=== PATIENT | female | born 1975 | race Caucasian/White ===

== ENCOUNTER 2017-05-16 11:59 | Observation (INO) ==
--- NOTE | 2017-05-16 12:21 | Emergency Department Note ---
Disposition Clinical Impression: Poison richard dermatitis Cellulitis Qualifiers: Site of cellulitis: unspecified site Qualified Code(s): L03.90 - Cellulitis, unspecified Disposition: Admitted As Inpatient Condition: Good Time of Disposition: 13:00 General Adult HPI - General Chief complaint: ED Allergic Reaction Stated complaint: worsening cellulitis Time Seen by Provider: 05/16/17 12:11 Source: patient Mode of arrival: ambulatory Limitations: no limitations Nursing Notes Reviewed: Yes Vital Signs Reviewed: Yes - History of Present Illness HPI Narrative: Patient is a 41-year-old female with past medical history of hypertension. She presents today due to concern for worsening cellulitis. She states that 2 weeks ago, she developed poison richard. She was seen by urgent care and was prescribed prednisone Dosepak for 6 days. She finished this course and had worsening spread of rash and itching. She followed up and can and was given a steroid injection in the buttocks. She said that this did not help either. She then started developing redness around the poison richard lesions. She followed up with urgent care on Wednesday and was then started on Bactrim for cellulitis She said that she has been taking this since Wednesday, has not missed any doses. She is still having worsening of redness and is started to develop induration in these areas. Denies any nausea, vomiting, fevers, diarrhea, abdominal pain. Pain Scale: 10 - Related Data Home Medications Medication Instructions Recorded Confirmed Lorazepam 04/06/16 Sertraline 04/06/16 04/06/16 Previous Rx's Medication Instructions Recorded Acetaminophen w/Cod 300-30 mg 1 each PO Q4-6H PRN #10 tablet 04/06/16 [Tylenol w/Codeine #3] Amoxicillin 875 mg PO BID #20 tablet 06/18/16 GuaiFENesin ER [Mucinex] 1,200 mg PO BID #20 tbbp.12hr 06/18/16 Loratadine [Claritin] 10 mg PO DAILY #30 tablet 06/18/16 methylPREDNISolone [Medrol] 4 mg PO TAPER #21 tablet 05/04/17 Allergies Allergy/AdvReac Type Severity Reaction Status Date / Time naproxen Allergy Intermediate Hives Verified 05/16/17 12:06 morphine Allergy Rash Verified 05/16/17 12:06 All systems ED: reviewed and negative except as stated. Constitutional: Denies: fever Cardiovascular: Denies: chest pain, palpitations Respiratory: Denies: cough, dyspnea Gastrointestinal: Denies: abdominal pain, nausea, vomiting, diarrhea, constipation Integumentary: Reports: rash, pruritus Past Medical History - Past Medical History Attestation: Yes The following information was validated with the patient. Source: patient Medical history: Reports: hypertension Psychiatric history: Reports: no psych history - Social History Smoking Status: Never smoker Smokeless Tobacco Status: No Alcohol use: Reports: occasionally Drug use: Reports: none Physical Exam - General Limitations: no limitations General appearance: alert, in no apparent distress - Head Head exam: atraumatic, normocephalic, normal inspection - Eye Eye exam: Present: normal appearance, PERRL, EOMI - ENT ENT exam: normal exam, normal oropharynx, mucous membranes moist - Neck Neck exam: Present: normal inspection, full ROM, trachea midline - Chest Chest inspection: Present: normal inspection, symmetric chest wall rise - Respiratory Respiratory exam: Present: normal lung sounds bilaterally - Cardiovascular Cardiovascular exam: Present: regular rate, normal rhythm, normal heart sounds - Abdominal Exam Abdominal exam: Present: soft, Non-Tender. Absent: tenderness, distention, guarding, rebound, rigidity - Extremities Exam Extremities exam: Present: full ROM. Absent: tenderness, pedal edema - Neurological Exam Neurological exam: Present: alert, oriented X3 - Psychiatric Psychiatric exam: Present: normal affect, normal mood - Skin Skin exam: Present: warm, dry, intact, rash (Poison richard rash of right arm, left arm with associated blister, abdomen, left buttocks. All of these areas have associated surrounding erythema and induration. No fluctuance appreciated on exam. Cobblestoning seen on bedside ultrasound with no abscesses seen.) Course Course Narrative: Blood pressure falsely elevated. Patient did not want blood pressure taken on either arm due to poison richard rash. Her blood pressures taken on ankle cuff, therefore inaccurate. The rest of the vitals within normal limits. Physical exam shows: Poison richard rash of right arm, left arm with associated blister, abdomen, left buttocks. All of these areas have associated surrounding erythema and induration. No fluctuance appreciated on exam. Cobblestoning seen on bedside ultrasound with no abscesses seen. Patient has failed outpatient abx treatment. Patient will be admitted for IV antibiotics for further care. Will draw CBC, BMP and start rocephin. Vital Signs Temperature 98.2 F 05/16/17 12:06 Pulse Rate 107 05/16/17 12:06 Respiratory Rate 20 05/16/17 12:06 Blood Pressure 184/125 05/16/17 12:06 O2 Sat by Pulse Oximetry 95 05/16/17 12:06 Temperature 98.2 F 05/16/17 12:06 Pulse Rate 107 05/16/17 12:06 Respiratory Rate 20 05/16/17 12:06 Blood Pressure 184/125 05/16/17 12:06 O2 Sat by Pulse Oximetry 95 05/16/17 12:06 Oxygen Delivery Oxygen Delivery Room Air Medical Decision Making - MDM Narrative Medical decision making narrative: Blood pressure falsely elevated. Patient did not want blood pressure taken on either arm due to poison richard rash. Her blood pressures taken on ankle cuff, therefore inaccurate. The rest of the vitals within normal limits. Physical exam shows: Poison richard rash of right arm, left arm with associated blister, abdomen, left buttocks. All of these areas have associated surrounding erythema and induration. No fluctuance appreciated on exam. Cobblestoning seen on bedside ultrasound with no abscesses seen. Patient has failed outpatient abx treatment. Patient will be admitted for IV antibiotics for further care. Will draw CBC, BMP and start rocephin. - Medical Records Medical records reviewed: Yes I reviewed the patient's medical records. S.B.AJacob. - Bonny.Evangelina.A.Leo Situation: Demographics, MOA Background: Presenting Complaint, Relevant PMH, Meds, & Allergies Assessment: Vital Signs, Course and respsone to treatment, Exam Concerns, Patient/Family Expectation, Pertinant Lab Results Recommendation: Barrier(s) to disposition, Recommendation based on pending studies, treatments, or consults S.B.A.RAusten Report Given to: Dr. Nola Gutierrez Repor Time: 13:00
--- NOTE | 2017-05-16 12:30 | Emergency Department Note ---
START Narrative - START START: I examined this patient and my medical decision-making was reviewed with the emergency medicine resident. I agree with the documented findings, disposition and treatment plan as described except to the extent set forth below. Patient seen with emergency medicine resident Dr. Emile Worthy, Please see a copy of his note for details of the H&P, ED evaluation, management and disposition. I have independently evaluated the patient and confirmed appropriate portions of the history and physical exam. Briefly: A 41-year-old female previously treated for poison richard exposure rechecked in urgent care and a ER developing cellulitis placed on Bactrim starting Wednesday but despite multiple doses of steroids and starting Bactrim induration erythema pain and discomfort and skin getting worse with blister on the lateral left upper extremity. No mucocutaneous oral pharyngeal lesions or involvement. No crusting of the lips or conjunctival injection. Patient is afebrile with stable vital signs. Patient we will get screening labs IV IV antibiotics and be admitted for cellulitis for failed outpatient treatment. Disposition pending
[2017-05-16] MEDS ORDERED: 0.9 % Sodium Chloride 1,000 ML IVC ONE (13:00)
--- NOTE | 2017-05-16 13:44 | Internal Med History&Physical ---
Date of Encounter: 05/16/17 Time of Encounter: 13:40 Assessment and Plan (1) Essential hypertension Current visit: Yes Status: Acute Resumed home dose of HCTZ. (2) DVT prophylaxis Current visit: Yes Status: Acute Encourage early ambulation. She does not require pharmacological prophylaxis per risk assessment score. (3) Cellulitis Current visit: Yes Status: Acute Patient has prominent edema, redness, warmth and induration of the left buttock area which could suggest superinfection and cellulitis. We will treat her with IV ceftriaxone. We will obtain CBC to evaluate WBC, we will obtain blood cultures. If WBC count is normal and blood cultures are sterile and patient remains afebrile I suggest quick de-escalation of antibiotics. Qualifiers: Site of cellulitis: buttock Qualified Code(s): L03.317 - Cellulitis of buttock (4) Poison richard dermatitis Current visit: Yes Status: Acute She received a dose of Medrol pack which is sometimes inadequate for severe poison richard dermatitis and can result in severe rebound symptoms. Per [employer]: "extensive clinical experience suggests that rebound dermatitis occurs commonly if too short a course is used (such as the six-day course in a Medrol dose pack)" We will start prednisone 60 mg daily for severe poison richard dermatitis. Acetaminophen for pain. She is allergic to morphine, oxycodone and naproxen. (5) Depression Current visit: Yes Status: Acute Continue Zoloft Qualifiers: Depression Type: major depressive disorder Major depression recurrence: recurrent Active/Remission status: in full remission Qualified Code(s): F33.42 - Major depressive disorder, recurrent, in full remission Internal Medicine - H&P: HPI Chief complaint: Skin rash Admitted From: Emergency Dept Plans for Post Hospital Care: Home History of present illness: Ms. Murray is a 41 year old female with past medical history significant for essential hypertension who presented to the hospital for evaluation of skin rash. 2 weeks ago she contacted poison richard through her who picked weeds outside. Her had poison richard on his arms and hands and she ended up having extensive rash of poison richard on both arms and abdomen and buttocks. She completed 6 days of Medrol pack prescribed by her PCP but did not see any significant improvement. Then she had a shot of Decadron and was started on Bactrim. Her symptoms got worse and she decided to come to the hospital. She reports burning and sharp pain in the affected skin areas especially on the left and right arm and left buttock. Worse with pressure and rubbing. She reports associated subjective fevers and chills but no measurable fever. In the emergency department she was treated with ceftriaxone and referred for admission. A 10 point review of systems was negative except as above Family history was reviewed and found to be noncontributory to this case. Patient's father suffered with colon cancer in his 40s. Social history: Denies tobacco alcohol and drug use. Lives at home with her and child. She works a desk job. Past Med Surg Social Fam HX - Past Medical History Medical history: hypertension Psychiatric history: no psych history - Social History Smoking Status: Never smoker Smokeless Tobacco Status: No Alcohol use: occasionally Drug use: none Internal Medicine - H&P: Meds Acetaminophen w/Cod 300-30 mg [Tylenol w/Codeine #3] 1 each PO Q4-6H PRN #10 tablet 04/06/16 [Rx] Lorazepam 04/06/16 [History] Sertraline 04/06/16 [History] Amoxicillin 875 mg PO BID #20 tablet 06/18/16 [Rx] GuaiFENesin ER [Mucinex] 1,200 mg PO BID #20 tbbp.12hr 06/18/16 [Rx] Loratadine [Claritin] 10 mg PO DAILY #30 tablet 06/18/16 [Rx] methylPREDNISolone [Medrol] 4 mg PO TAPER #21 tablet 05/04/17 [Rx] 3 Allergy/AdvReac Type Severity Reaction Status Date / Time naproxen Allergy Intermediate Hives Verified 05/16/17 12:06 morphine Allergy Rash Verified 05/16/17 12:06 All Systems PM: A 10-system review of systems was performed and is negative for pertinent findings except as documented above in the HPI. - Constitutional Vitals: Temp Pulse Resp BP Pulse Ox 98.2 F 107 20 184/125 95 05/16/17 12:06 05/16/17 12:06 05/16/17 12:06 05/16/17 12:06 05/16/17 12:06 General appearance: Present: A&O X 3, no acute distress - Eye Eye exam: Present: PERRL, conjuntiva pink, sclera anicteric Pupils: Present: PERRL - Respiratory Respiratory exam: Present: CTAB. Absent: accessory muscle use, rales, rhonchi, wheezes - Cardiovascular Cardiovascular exam: Present: RRR, +S1, +S2. Absent: diastolic murmur, gallop, rubs, systolic murmur - GI/Abdominal GI/Abdominal exam: Present: normal bowel sounds, soft, no peritoneal signs. Absent: distended, tenderness - Extremities Exam Extremities exam: Present: warm, radial pulses palpable and symmetrical. Absent : calf tenderness, cyanotic, pedal edema - Neurological Exam Neurological exam: Present: CN II-XII intact, oriented X3, no focal deficits. Absent: pronater drift, facial droop, speech deficit - Skin Skin exam: Present: dry, erythema Additional comments: Left posterior arm erythema and duration and several fluid-filled vesicles noted , largest is 1.5 cm in diameter. No open wounds. Right arm and antecubital fosa indurated and raised erythematosus rash with no open wounds. Left buttock area fringe ration redness and warmth but no open wounds. Mild rash on the abdomen and under the right breast going into the groin but not appearing to involve the genital area.
[2017-05-16 13:50] LABS: Basophils # 0.1 K/mcL (0.0-0.2); Basophils % 0.4 %; Eosinophils # 0.6 K/mcL (0.0-0.6); Eosinophils % 5.5 %; Hematocrit 45.2 % (35.3-44.9); Hemoglobin 14.9 g/dL (11.5-15.4); Immature Granulocytes % 0.3 % (0-4); Lymphocytes # 2.2 K/mcL (0.6-4.6); Lymphocytes % 19.9 %; Mean Corpuscular Hemoglobin 30.2 pg (28.0-33.3); Mean Corpuscular Volume 91.7 fL (83.0-100.0); Mean Platelet Volume 9.9 fL (9.4-12.4); Monocytes # 0.8 K/mcL (0.0-1.3); Monocytes % 7.3 %; Neutrophils # 7.5 K/mcL (1.6-8.9); Platelet Count 216 K/mcL (140-400); Red Blood Count 4.93 M/mcL (3.82-4.97); Red Cell Distribution Width 13.8 % (11.5-14.5); Segmented Neutrophils % 66.6 %
[2017-05-16] MEDS ORDERED: predniSONE 20 MG TABLET PO SCH (14:00)
[2017-05-16] MEDS ORDERED: Naloxone 0.4 MG/ML INJ IVP PRN (14:00)
[2017-05-16 14:01] LABS: Calcium 9.1 mg/dL (8.6-10.8); Potassium 3.7 mEq/L (3.5-4.5)
[2017-05-16] MEDS ORDERED: methylPREDNISolone 125 MG/2 ML VIAL IVP ONE (14:10)
[2017-05-16] MEDS: Acetaminophen 325 MG TABLET PO PRN (15:51)
[2017-05-16 21:02] LABS: Bilirubin,Urine Negative (Negative); Blood,Urine Negative (Negative); Clarity,Urine Clear (Clear); Color,Urine Yellow (Yellow); Glucose,Urine (UA) Normal (Normal); Ketones,Urine Negative (Negative); Leukocyte Esterase,Urine Negative (Negative); Nitrite,Urine Negative (Negative); Protein,Urine Negative (Neg-Trace); Specific Gravity,Urine 1.021 (1.010-1.025); Urobilinogen,Urine Normal (Normal)
[2017-05-16] MEDS: traMADol 50 MG TABLET PO PRN (21:22)
[2017-05-17] MEDS: traMADol 50 MG TABLET PO PRN ×3 (04:38→17:27)
[2017-05-17 04:51] LABS: Basophils % 0.2 %; Eosinophils % 0.1 %; Hematocrit 43.9 % (35.3-44.9); Hemoglobin 14.9 g/dL (11.5-15.4); Immature Granulocytes % 0.5 % (0-4); Lymphocytes % 6.1 %; Mean Corpuscular HGB Conc 33.9 g/dL (31.6-35.5); Mean Corpuscular Hemoglobin 31.2 pg (28.0-33.3); Mean Corpuscular Volume 91.8 fL (83.0-100.0); Mean Platelet Volume 10.2 fL (9.4-12.4); Monocytes # 0.2 K/mcL (0.0-1.3); Monocytes % 0.9 %; Neutrophils # 15.2 K/mcL (1.6-8.9); Platelet Count 209 K/mcL (140-400); Red Blood Count 4.78 M/mcL (3.82-4.97); Red Cell Distribution Width 13.6 % (11.5-14.5); Segmented Neutrophils % 92.2 %
[2017-05-17 05:08] LABS: BUN/Creatinine Ratio 18 (6-26); Blood Urea Nitrogen 17 mg/dL (7-20); Calcium 9.5 mg/dL (8.6-10.8); Carbon Dioxide 19 mEq/L (19-29); Chloride 106 mEq/L (98-109); Glucose 152 mg/dL (70-99); Osmolality,Calculated 281 (280-300); Potassium 4.3 mEq/L (3.5-4.5); Sodium 133 mEq/L (136-145); eGFR For African Americans > 60 (> 60); eGFR For Non-African Americans > 60 (> 60)
[2017-05-17] MEDS: predniSONE 20 MG TABLET PO SCH (09:13)
[2017-05-17] MEDS: Acetaminophen 325 MG TABLET PO PRN ×2 (09:13→22:30)
--- NOTE | 2017-05-17 18:24 | Internal Med Progress Note ---
Date of Encounter: 05/17/17 Time of Encounter: 11:00 - Assessment and plan (1) Cellulitis Current Visit: Yes Status: Acute Assessment and plan: -Erythematous area of left upper extremity has extended beyond marked borders. -Will discontinue ceftriaxone and start patient on IV vancomycin with pharmacy to dose Qualifiers: Site of cellulitis: extremity Site of cellulitis of extremity: upper extremity Laterality: left Qualified Code(s): L03.114 - Cellulitis of left upper limb (2) Poison richard dermatitis Current Visit: Yes Status: Acute Assessment and plan: -Management of cellulitis as above. -In addition will continue prednisone. (3) Essential hypertension Current Visit: Yes Status: Acute Assessment and plan: -Blood pressure controlled; continue home medications. (4) Depression Current Visit: Yes Status: Acute Assessment and plan: -Continue home medication. Qualifiers: Depression Type: major depressive disorder Major depression recurrence: recurrent Active/Remission status: in full remission Qualified Code(s): F33.42 - Major depressive disorder, recurrent, in full remission - Subjective Interval history: Patient reports of worsening erythematous area on left upper extremity with discomfort. - Constitutional Vitals: Temp Pulse Resp BP Pulse Ox 98.8 F 72 15 118/78 96 05/17/17 14:49 05/17/17 14:49 05/17/17 14:49 05/17/17 14:49 05/17/17 14:49 General appearance: Present: A&O X 3, no acute distress - Respiratory Respiratory exam: Present: CTAB. Absent: accessory muscle use, rales, rhonchi, wheezes - Skin Skin exam: Present: erythema (Left upper extremity: Erythematous region has extended outside of previously marked borders; abdomen: Erythematous patch; left gluteal region: Erythematous patch) Internal Medicine: Result - Labs CBC & Chem 7: 05/17/17 04:07 05/17/17 04:07 Labs: Short CBC 05/17/17 Range/Units 04:07 WBC 16.4 H (4.3-11.1) K/mcL Hgb 14.9 (11.5-15.4) g/dL Hct 43.9 (35.3-44.9) % Plt Count 209 (140-400) K/mcL Neutrophils # 15.2 H (1.6-8.9) K/mcL BMP 05/17/17 04:07 Sodium 133 L Potassium 4.3 Chloride 106 Carbon Dioxide 19 BUN 17 Creatinine 0.92 Glucose 152 H Calcium 9.5 Urine 05/16/17 Range/Units 20:45 Urine Color Yellow (Yellow) Urine Clarity Clear (Clear) Urine pH 7.0 (5.0-8.0) pH Units Ur Specific [place] 1.021 (1.010-1.025) Urine Protein Negative (Neg-Trace) mg/dL Urine Glucose (UA) Normal (Normal) mg/dL Consult Discharge Plan - Plan Referrals: Gigi Renteria Jr, [employer] MECH[employer]IC [Primary Care Provider] -
[2017-05-17] MEDS ORDERED: Vancomycin 1,250 MG in D5% in Water 250 ML IVPB ONE (19:00)
[2017-05-18] MEDS ORDERED: Vancomycin 1,000 MG in D5% in Water 250 ML IVPB SCH (08:00)
[2017-05-18] MEDS: traMADol 50 MG TABLET PO PRN (08:11)
[2017-05-18] MEDS: predniSONE 20 MG TABLET PO SCH (08:13)
[2017-05-18 10:23] LABS: Basophils # 0.1 K/mcL (0.0-0.2); Basophils % 0.3 %; Eosinophils # 0.1 K/mcL (0.0-0.6); Eosinophils % 0.4 %; Hematocrit 41.7 % (35.3-44.9); Hemoglobin 13.7 g/dL (11.5-15.4); Immature Granulocytes % 0.6 % (0-4); Lymphocytes # 2.3 K/mcL (0.6-4.6); Lymphocytes % 10.9 %; Mean Corpuscular HGB Conc 32.9 g/dL (31.6-35.5); Mean Corpuscular Hemoglobin 30.5 pg (28.0-33.3); Mean Corpuscular Volume 92.9 fL (83.0-100.0); Mean Platelet Volume 9.8 fL (9.4-12.4); Monocytes # 0.8 K/mcL (0.0-1.3); Monocytes % 3.9 %; Neutrophils # 17.5 K/mcL (1.6-8.9); Platelet Count 195 K/mcL (140-400); Red Blood Count 4.49 M/mcL (3.82-4.97); Red Cell Distribution Width 14.2 % (11.5-14.5); Segmented Neutrophils % 83.9 %
[2017-05-18 10:34] LABS: BUN/Creatinine Ratio 24 (6-26); Blood Urea Nitrogen 19 mg/dL (7-20); Calcium 9.1 mg/dL (8.6-10.8); Carbon Dioxide 22 mEq/L (19-29); Chloride 107 mEq/L (98-109); Glucose 114 mg/dL (70-99); Osmolality,Calculated 289 (280-300); Potassium 3.8 mEq/L (3.5-4.5); Sodium 138 mEq/L (136-145); eGFR For African Americans > 60 (> 60); eGFR For Non-African Americans > 60 (> 60)
[2017-05-18 10:40] VITALS: BP 142/90
--- NOTE | 2017-05-18 11:04 | Discharge Summary ---
<Genny Luke - Last Filed: 05/18/17 11:34> Date of Encounter: 05/18/17 Time of Encounter: 10:50 - Discharge Diagnosis (1) Cellulitis Priority: Primary Status: Acute Comments: Patients rash improved a little within the border. She was started on augmentin and predinsone Qualifiers: Site of cellulitis: extremity Site of cellulitis of extremity: upper extremity Laterality: left Qualified Code(s): L03.114 - Cellulitis of left upper limb (2) Poison richard dermatitis Priority: Secondary Status: Acute Comments: Patient has had poison richard before. please see above (3) Essential hypertension Priority: Secondary Status: Acute Comments: blood pressure was controlled continued patient medication (4) Depression Priority: Secondary Status: Acute Comments: continue patient home medications Qualifiers: Depression Type: major depressive disorder Major depression recurrence: recurrent Active/Remission status: in full remission Qualified Code(s): F33.42 - Major depressive disorder, recurrent, in full remission - Discharge Medications Prescriptions: Amoxicillin/Clavulanate [Augmentin] 875 mg PO BIDWM 11 Days #22 tablet predniSONE [PredniSONE] See Taper PO TAPER 3 Days #7 tablet Home Medications: Sertraline [Zoloft] 25 mg PO DAILY 04/06/16 [History] hydroCHLOROthiazide [Hydrochlorothiazide] 12.5 mg PO DAILY 05/16/17 [History] Amoxicillin/Clavulanate [Augmentin] 875 mg PO BIDWM 11 Days #22 tablet 05/18/17 [Rx] predniSONE [PredniSONE] See Taper PO TAPER 3 Days #7 tablet 05/18/17 [Rx] Allergies/Adverse Reactions: 3 Allergy/AdvReac Type Severity Reaction Status Date / Time naproxen Allergy Intermediate Hives Verified 05/16/17 12:06 morphine Allergy Rash Verified 05/16/17 12:06 Date of admission: 05/16/17 13:27 Primary care physician: Gigi Renteria Jr, CNP Discharging clinician: Jarad Corona - Patient Status Disposition: Home, Self-Care Condition: Good Functional capacity at discharge: independent ambulation Overall status at discharge: patient is progressing back to baseline - Discharge Instructions Follow Up With: Gigi Renteria Jr, CNP [Primary Care Provider] - 05/24/17 10:30 am Forms: Inpatient Work/School Release - Diet and Activity Activity: resume usual activities as tolerated Diet: advance to your usual diet Hospital course: Ms. Murray is a 41 year old female with past medical history significant for essential hypertension who presented to the hospital for evaluation of skin rash. 2 weeks ago she contacted poison richard through her who picked weeds outside. Her had poison richard on his arms and hands and she ended up having extensive rash of poison richard on both arms and abdomen and buttocks. She completed 6 days of Medrol pack prescribed by her PCP but did not see any significant improvement. Then she had a shot of Decadron and was started on Bactrim. Her symptoms got worse and she decided to come to the hospital. She reports burning and sharp pain in the affected skin areas especially on the left and right arm and left buttock. Worse with pressure and rubbing. She reports associated subjective fevers and chills but no measurable fever. In the emergency department she was treated with ceftriaxone and then admitted. She was started on vancomycin and prednisone. She was found to have an elevated creatinine so hctz was held and metoprolol started. She continued to improve over the hospital stay and requested to be discharged. Since she was clinically improving the patient was to be discharged on oral augmentin, short prednisone taper, and restarted on hctz due to normal creatinine. The patient was told to return to the hospital should she worsen and to follow up with her PCP in a week. She stated a clear understanding of the treatment and plan. All questions were answered. - Time Spent with Patient Total time spent providing and/or coordinating discharge services: - Constitutional Vitals: Temp Pulse Resp BP Pulse Ox 98.9 F 74 15 142/90 96 05/18/17 10:40 05/18/17 10:40 05/18/17 10:40 05/18/17 10:40 05/18/17 10:40 General appearance: Present: A&O X 3, no acute distress - Head Head exam: Present: atraumatic, normal inspection - Respiratory Respiratory exam: Present: CTAB. Absent: rales, respiratory distress, rhonchi - Cardiovascular Cardiovascular exam: Present: RRR. Absent: clicks, gallop - GI/Abdominal GI/Abdominal exam: Present: normal bowel sounds, soft. Absent: guarding, rigid - Extremities Exam Extremities exam: Absent: calf tenderness, pedal edema - Skin Skin exam: Present: dry, erythema, rash, vesicles <Jarad Corona - Last Filed: 05/18/17 12:35> Date of Encounter: 05/18/17 Date of admission: 05/16/17 13:27 Primary care physician: Gigi Renteria Jr, SALES DEVELOPMENT MANAGER Hospital course: Ms. Murray is a 41 year old female - Time Spent with Patient Total time spent providing and/or coordinating discharge services: - Constitutional Vitals: Temp Pulse Resp BP Pulse Ox 98.9 F 74 15 142/90 96 05/18/17 10:40 05/18/17 10:40 05/18/17 10:40 05/18/17 10:40 05/18/17 10:40 - Attending Attestation I independently saw and examined this patient on 05/18/2017, I have reviewed EMR. Diagnoses and management plan was discussed with the patient, and the resident physician. 41-year-old female with past medical history of hypertension, multiple allergies. She was admitted for management of cellulitis secondary to poison richard dermatitis. The dermatitis was extensive including her left upper arm abdominal wall and left thigh. On review this morning she denies new complaints. Physical examination vital signs are stable she is afebrile she is not in any form of distress. Chest is clear to auscultation bilaterally. Abdomen is soft and nontender. She has no pedal edema. Examination of the skin reveals significantly improved erythema over left upper arm, abdominal wall, left upper thigh and buttock region. She has a blister about 2 cm on the left upper arm which she reports is nontender. Labs and imaging reveals leukocytosis possibly secondary to steroids. Patient is clinically stable to be discharged home, she has a close follow-up. With her primary care physician she may be discharged on Augmentin by mouth, and rapid prednisone taper. She is educated on the possible side effects with high-dose steroids which include uncontrolled hypertension. Home dose of hydrochlorothiazide may be restarted since her creatinine is normal. Follow up with PCP Rest of details as in the resident physicians documentation.
[2017-05-18] MEDS ORDERED: Aminoglycoside Consult 1 EACH MC ONE (13:19)
== END 2017-05-18 13:20 | disposition home or self-care (01) ==
LOC: 3ANU 11:59 → EMEROO 11:59 → SUATTDRO 13:27 → 3ANU 14:00
PROVIDERS: ADMIT Internal Medicine; ATTEND Internal Medicine